=== PATIENT | female | born 1980 | race Caucasian/White ===

== ENCOUNTER 2019-01-13 13:59 | Emergency (ER) | payer SELFPAY ==
[~2019-01-13] VITALS: Ht 177.8 cm; Wt 90.7 kg
--- NOTE | 2019-01-13 14:20 | NUR ---
ED Nurse Note: patient walked into ED c/o earache. a/o x4 ambulatory.
[2019-01-13 14:21] VITALS: BP 115/74
--- NOTE | 2019-01-13 14:36 | Emergency Room Report ---
History of Present Illness General Chief Complaint: Earache Source: Patient Present Illness HPI 38-year-old female with no significant past medical history here complaining of right ear pain, sore throat, and congestion 5 days. Patient is here with her mom who appears with similar symptoms. Patient is rating the pain 3 out of 10, intermittent, sharp and has not taken any medication for pain relief. Denies jaw pain, tooth pain, rhinorrhea, chest pain, SOB, palpitation in all other associated symptoms Allergies: Coded Allergies: No Known Allergies (Unverified , 01/13/19) Patient History Past Medical History: see triage record Past Surgical History: none Now: No Reviewed Nursing Documentation: PMH: Agreed; PSxH: Agreed Nursing Documentation-PMH Past Medical History: No Stated History Review of Systems All Other Systems: negative except mentioned in HPI Physical Exam Vital Signs Date Time Temp Pulse Resp B/P (MAP) Pulse Ox O2 Delivery O2 Flow Rate FiO2 01/13/19 14:21 97.3 99 20 115/74 97 Room Air Sp02 EP Interpretation: reviewed, normal General Appearance: normal inspection, well appearing, alert Head: normocephalic Eyes: bilateral eye normal inspection, bilateral eye PERRL ENT: normal pharynx, no angioedema, other - pus right ear Neck: normal inspection, full range of motion, supple Respiratory: normal inspection, lungs clear, no rhonchi, no wheezing Cardiovascular #1: normal inspection, regular rate, rhythm, no edema Gastrointestinal: normal inspection, soft Musculoskeletal: normal inspection, back normal Neurologic: normal inspection, alert, oriented x3 Psychiatric: normal inspection, judgement/insight normal Skin: normal inspection, normal color, no rash Lymphatic: normal inspection, no adenopathy Medical Decision Making PA Attestation All diagnoses and treatment plans per reviewed and discussed with my supervising physician Dr Figueredo Diagnostic Impression: Primary Impression: Otitis media ER Course 38-year-old female with no significant past medical history here complaining of right ear pain, sore throat, and congestion 5 days. Patient is here with her mom who appears with similar symptoms. Patient is rating the pain 3 out of 10, intermittent, sharp and has not taken any medication for pain relief. Denies jaw pain, tooth pain, rhinorrhea, chest pain, SOB, palpitation in all other associated symptoms Ddx considered but are not limited to otitis media, otitis externa, uri , mastoidntits Vital signs: are WNL, pt. is afebrile H&PE are most consistent with otitis media ORDERS: amoxicillin ED INTERVENTIONS: None required at this time. DISCHARGE: At this time pt. is stable for d/c to home. Will provide printed patient care instructions, and any necessary prescriptions. Care plan and follow up instructions have been discussed with the patient prior to discharge. see ENT Last Vital Signs Date Time Temp Pulse Resp B/P (MAP) Pulse Ox O2 Delivery O2 Flow Rate FiO2 01/13/19 14:21 97.3 99 20 115/74 97 Room Air Disposition: HOME, SELF-CARE Condition: Stable Scripts Ibuprofen* (MOTRIN*) 600 Mg Tablet 600 MG ORAL Q8H PRN for For Pain, #30 TAB 0 Refills Prov: Simona Huffman 01/13/19 Amoxicillin* (AMOXIL*) 500 Mg Capsule 500 MG ORAL EVERY 8 HOURS for 10 Days, #30 CAP Prov: Simona Huffman 01/13/19 Patient Instructions: Otitis Media, Adult Additional Instructions: follow up with ENT Simona Huffman Jan 13, 2019 14:36
[2019-01-13] MEDS ORDERED: IBUPROFEN600 MG ORAL (14:37)
[2019-01-13] MEDS ORDERED: AMOXICILLIN500 MG ORAL (14:37)
--- NOTE | 2019-01-13 15:00 | NUR ---
ER DISCHARGE NOTE: Patient is cleared to be discharged per ERMD, pt is aox4, on room air, with stable vital signs. pt was given dc and prescription instructions, pt was able to verbalize understanding, pt id band removed without complications. pt is able to ambulate with steady gait. pt took all belongings.
== END 2019-01-13 15:00 | disposition home or self-care (01) ==
LOC: EMR 14:30
DX: H66.90 Otitis media, unspecified, unspecified ear (principal)
CPT/HCPCS: 99282